=== PATIENT | male | born 1995 | race Caucasian/White ===

== ENCOUNTER 2016-09-26 16:27 | Emergency (ER) | payer OTHER ==
[~2016-09-26] VITALS: Ht 167.6 cm; Wt 61.2 kg
[2016-09-26] MEDS ORDERED: HYDROCODONE-AP1 EAC6 PO (17:50)
[2016-09-26] MEDS ORDERED: IBUPROFEN 600600 M1 PO (17:50)
[2016-09-26] MEDS ORDERED: KEFLEX500 MG PO (17:52)
[2016-09-26 19:00] VITALS: BP 118/68
== END 2016-09-26 19:04 | disposition home or self-care (01) ==
LOC: ER 16:27
DX: S51.812A Laceration without foreign body of left forearm, initial encounter (principal); W26.0XXA Contact with knife, initial encounter; Y93.89 Activity, other specified; Y92.89 Other specified places as the place of occurrence of the external cause; Y99.0 Civilian activity done for income or pay